=== PATIENT | male | born 1930 | race Caucasian/White ===

== ENCOUNTER 2017-04-05 22:56 | Emergency (ER) | payer MEDICARE ==
[2017-04-05 22:59] VITALS: BP 181/82; PULSE 66; RESP 24; TEMP 97.9; O2SAT 92
[2017-04-06] MEDS ORDERED: methylPREDNISolone SOD SUCC 125 MG/2 ML VIAL IVP ONE (00:45)
[2017-04-06] MEDS ORDERED: SODIUM CHLORIDE 0.9% FLUSH 10 ML FLUSH IVF PRN (00:45)
[2017-04-06 00:47] VITALS: RESP 20; O2SAT 90
[2017-04-06] MEDS: RESP: ALBUTEROL 2.5 MG/3 ML NEB (SCH) INH (00:49)
--- NOTE | 2017-04-06 02:40 | RADRPT ---
EXAM DATE/TIME: 04/06/2017 00:46 [place] COMPARISON: No previous studies available for comparison. INDICATIONS : Short of breath. MEDICAL HISTORY : None. SURGICAL HISTORY : None. ENCOUNTER: Initial ACUITY: 1 day PAIN SCORE: 6/10 LOCATION: Bilateral chest FINDINGS: A single view of the chest demonstrates minimal left basilar density. Right lung clear. Heart borderl ine enlarged. The cardiomediastinal contours are unremarkable. Osseous structures are intact. CONCLUSION: Left basilar atelectasis. Suresh Trujillo MD on April 06, 2017 at 1:36 Board Certified Radiologist. This report was verified electronically.
[2017-04-06 02:52] LABS: AUTOMATED NEUTROPHIL # 4.2 TH/MM3 (1.8-7.7); BASOPHIL % 0.5 % (0.0-2.0); EOSINOPHIL # 0.1 TH/MM3 (0-0.4); EOSINOPHIL % 2.3 % (0.0-4.0); HEMATOCRIT 39.8 % (39.0-51.0); HEMO FLAGS DIFF FINAL; LYMPHOCYTE # 0.7 TH/MM3 (1.0-4.8); MEAN CORPUSCULAR HEMOGLOBIN 32.4 PG (27.0-34.0); MEAN CORPUSCULAR HGB CONC 33.4 % (32.0-36.0); MONO % 19.2 % (0.0-8.0); PLATELET COUNT 170 TH/MM3 (150-450); RED CELL DISTRIBUTION WIDTH 14.7 % (11.6-17.2); WHITE BLOOD COUNT 6.2 TH/MM3 (4.0-11.0)
[2017-04-06 03:04] LABS: APTT (PATIENT) 27.1 SEC (24.3-30.1); PROTHROMBIN TIME - PATIENT 10.7 SEC (9.8-11.6)
[2017-04-06] MEDS ORDERED: ALBU6.7H INH (03:23)
[2017-04-06] MEDS ORDERED: ZITHTAB PO (03:23)
[2017-04-06] MEDS ORDERED: MEDR4PAK PO (03:23)
--- NOTE | 2017-04-06 03:24 | PD ---
HPI Chief Complaint: Respiratory Symptoms Time Seen by Provider: 00:33 Travel History International Travel<30 days: No Contact w/Intl Traveler<30days: No Traveled to known affect area: No History of Present Illness HPI PROD COUGH WITH GREENISH SPUTUM, SOME WHEEZING, VISITING FROM [place]...DENIES FEVER/N/V/D AT THIS POINT PFSH Past Medical History Arthritis: Yes Cancer: Yes Diabetes: Yes Patient Takes Glucophage: Yes (metformin ) Hypertension: Yes Radiation Therapy: Yes Ulcer: Yes (kidney stones ) Tetanus Vaccination: < 5 Years Past Surgical History Genitourinary Surgery: Yes (prostate cancer with 38 radiation treatments) Other Surgery: Yes (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 HEAD: Atraumatic. Normocephalic. EYES: Pupils equal and round. No scleral icterus. No injection or drainage. ENT: No nasal bleeding or discharge. Mucous membranes pink and moist. NECK: Trachea midline. No JVD. CARDIOVASCULAR: Regular rate and rhythm. RESPIRATORY: No accessory muscle use. MILD TRUDY WHEEZING NOTED. GASTROINTESTINAL: Abdomen soft, non-tender, nondistended. Hepatic and splenic margins not palpable. MUSCULOSKELETAL: Extremities without clubbing, cyanosis, or edema. No obvious deformities. NEUROLOGICAL: Awake and alert. No obvious cranial nerve deficits. Motor grossly within normal limits. Five out of 5 muscle strength in the arms and legs. Normal speech. PSYCHIATRIC: Appropriate mood and affect; insight and judgment normal. Data Data Last Documented VS Vital Signs Date Time Temp Pulse Resp B/P Pulse Ox O2 Delivery O2 Flow Rate FiO2 04/06/17 00:47 20 90 Room Air 04/06/17 00:47 2 04/05/17 22:59 97.9 66 181/82 Orders Complete Blood Count With Diff (04/06/17 00:33) Comprehensive Metabolic Panel (04/06/17 00:33) B-Type Natriuretic Peptide (04/06/17 00:33) Act Partial Throm Time (Ptt) (04/06/17 00:33) Prothrombin Time / Inr (Pt) (04/06/17 00:33) Ckmb (Isoenzyme) Profile (04/06/17 00:33) Troponin I (04/06/17 00:33) Iv Access Insert/Monitor (04/06/17 00:33) Electrocardiogram (04/06/17 00:33) Ecg Monitoring (04/06/17 00:33) Oximetry (04/06/17 00:33) Oxygen Administration (04/06/17 00:33) Chest, Single Ap (04/06/17 00:33) Sodium Chloride 0.9% Flush (Ns Flush) (04/06/17 00:45) Methylprednisolone So Succ Inj (Solumedr (04/06/17 00:45) Albuterol Neb (Albuterol Neb) (04/06/17 00:45) Labs Laboratory Tests Test 04/06/17 00:54 White Blood Count 6.2 TH/MM3 Red Blood Count 4.10 MIL/MM3 Hemoglobin 13.3 GM/DL Hematocrit 39.8 % Mean Corpuscular Volume 97.0 FL Mean Corpuscular Hemoglobin 32.4 PG Mean Corpuscular Hemoglobin 33.4 % Concent Red Cell Distribution Width 14.7 % Platelet Count 170 TH/MM3 Mean Platelet Volume 9.0 FL Neutrophils (%) (Auto) 67.0 % Lymphocytes (%) (Auto) 11.0 % Monocytes (%) (Auto) 19.2 % Eosinophils (%) (Auto) 2.3 % Basophils (%) (Auto) 0.5 % Neutrophils # (Auto) 4.2 TH/MM3 Lymphocytes # (Auto) 0.7 TH/MM3 Monocytes # (Auto) 1.2 TH/MM3 Eosinophils # (Auto) 0.1 TH/MM3 Basophils # (Auto) 0.0 TH/MM3 CBC Comment DIFF FINAL Differential Comment Prothrombin Time 10.7 SEC Prothromb Time International 1.0 RATIO Ratio Activated Partial 27.1 SEC Thromboplast Time MDM Medical Decision Making Medical Screen Exam Complete: Yes Emergency Medical Condition: Yes Medical Record Reviewed: Yes Differential Diagnosis URI V BRONCHITIS V PNA Narrative Course PT RESPONDED WELL TO NEBS AND ABX WILL D/C Diagnosis Primary Impression: ACUTE BRONCHITIS Scripts Methylprednisolone Dosepak (Medrol Dosepak)4 Mg Dspk4 Mg PO DIRECTED #1 DSPK Per Pharmacist direction Prov:Milton Cisneros MD 04/06/17 Azithromycin (Zithromax Z-Jermaine)250 Mg [id number] Mg PO DIRECTED #1 DSPK 500 MG (2 tabs) day 1, then 1 tab days 2-5. Prov:Milton Cisneros MD 04/06/17 Albuterol 6.7 GM Inh (Proventil Hfa 6.7 GM Inh)90 Mcg/Act Aer1 Puff INH Q4H PRN (SHORTNESS OF BREATH) #1 INHALER Prov:Milton Cisneros MD 04/06/17 Disposition: 01 DISCHARGE HOME Condition: Stable Milton Cisneros MD Apr 06, 2017 03:24
[2017-04-06 03:31] LABS: ALKALINE PHOSPHATASE 83 U/L (45-117); ALT (GPT) 34 U/L (12-78); ANION GAP 5 MEQ/L (5-15); AST (GOT) 22 U/L (15-37); BICARBONATE 31.2 MEQ/L (21.0-32.0); BLOOD UREA NITROGEN 24 MG/DL (7-18); CHLORIDE 108 MEQ/L (98-107); CREATINE KINASE 123 U/L (39-308); GLOMERULAR FILTRATION RATE 76 ML/MIN (>89); POTASSIUM 3.9 MEQ/L (3.5-5.1); SODIUM (NA) 144 MEQ/L (136-145); TOTAL BILIRUBIN ADULT 0.4 MG/DL (0.2-1.0)
[2017-04-06 03:35] VITALS: BP 170/88
--- NOTE | 2017-04-06 13:36 | EKG ---
Date Performed: 04/06/2017 Time Performed: 01:09:37 PTAGE: 86 years EKG: Sinus rhythm WITH FIRST DEGREE AV BLOCK INDETERMINATE AXIS RIGHT BUNDLE BRANCH BLOCK ABNORMAL ECG NO PREVIOUS TRACING DOCTOR: Elvis Mejias Interpretating Date/Time 04/06/2017 13:34:19
== END 2017-04-06 03:40 | disposition home or self-care (01) ==
LOC: NEPC 22:56
DX: J20.9 Acute bronchitis, unspecified (principal); E11.9 Type 2 diabetes mellitus without complications; I10 Essential (primary) hypertension; Z85.038 Personal history of other malignant neoplasm of large intestine; Z85.46 Personal history of malignant neoplasm of prostate; Z87.442 Personal history of urinary calculi; Z79.899 Other long term (current) drug therapy
CPT/HCPCS: 71010; 80053; 82550; 82552; 83880; 84484; 85025; 85610; 85730; 93005; 94640; 94664; 96374; 99285; J2930; J7613